=== PATIENT | female | born 1955 ===

== ENCOUNTER 2017-06-02 10:01 | Emergency (ER) | payer OTHER ==
[2017-06-02 10:01] VITALS: BMI 31.3
[2017-06-02 10:13] VITALS: TEMP 97.8
[2017-06-02] MEDS ORDERED: Morphine 4 MG/ML VIAL IV STA (11:46)
--- NOTE | 2017-06-02 12:17 | RAD ---
HISTORY: pain COMPARISON: Chest x-ray performed 12/16/15 TECHNIQUE: Chest, one view. FINDINGS: LUNGS: No focal consolidation. 8 mm nodular density at the right lung base appears peripherally calcified. PLEURA: No significant pleural effusion identified. No definite pneumothorax . CARDIOVASCULAR: Heart size appears within normal limits. Ectatic aorta. OSSEOUS STRUCTURES: No acute osseous abnormality identified. VISUALIZED UPPER ABDOMEN: Unremarkable. OTHER FINDINGS: None. IMPRESSION: No focal consolidation, significant pleural effusion, or definite pneumothorax identified. 8 mm nodule at the right lung base appears peripherally calcified.
--- NOTE | 2017-06-02 12:17 | RAD ---
PROCEDURE: Left femur HISTORY: Pain. No history of recent/ related trauma provided COMPARISON: None TECHNIQUE: Standard protocol for this study/examination. FINDINGS: No significant/acute osseous, articular or soft tissue abnormalities. Incompletely visualized and therefore characterize degenerative changes left knee. IMPRESSION: No acute findings related to/accounting for the clinical presentation. Please note: No preliminary report/ innterpretation of this examination provided by emergency department personnel.
[2017-06-02 13:01] LABS: BASO # 0.1 K/uL (0.0-0.2); BASO % 0.8 % (0.0-2.0); EOS # 0.4 K/uL (0.0-0.7); EOS % 3.8 % (0.0-4.0); LYMPH # 3.2 K/uL (1.0-4.3); LYMPH % 29.5 % (20.0-40.0); MEAN CELL VOLUME 86.9 fL (81.0-99.0); MEAN CORPUSCULAR HEMOGLOBIN 29.3 pg (27.0-31.0); MEAN CORPUSCULAR HGB CONC 33.7 g/dL (33.0-37.0); MEAN PLATELET VOLUME 10.4 fL (7.2-11.7); MONO # 0.7 K/uL (0.0-0.8); MONO % 6.4 % (0.0-10.0); NRBC % 0.1 % (0.0-2.0); RED CELL DISTRIBUTION WIDTH 14.1 % (11.5-14.5); WHITE BLOOD COUNT 10.9 K/uL (4.8-10.8)
[2017-06-02 13:10] LABS: CHLORIDE 102 mmol/L (98-107); SODIUM 143 mmol/L (132-148)
[2017-06-02 13:12] LABS: GFR AFRICAN-AMERICAN > 60
[2017-06-02 13:13] LABS: ALB/GLOB RATIO 1.2 (1.0-2.1); ALKALINE PHOSPHATASE 104 U/L (38-126); ALT/SGPT 29 U/L (9-52); AST/SGOT 27 U/L (14-36); BILIRUBIN,TOTAL 0.7 mg/dL (0.2-1.3); BLOOD UREA NITROGEN 11 mg/dL (7-17); CALCIUM 9.4 mg/dl (8.6-10.4); CARBON DIOXIDE 23 mmol/L (22-30); GLUCOSE,RANDOM 81 mg/dL (65-105); TOTAL PROTEIN 7.6 g/dL (6.3-8.3)
[2017-06-02 13:14] LABS: MAGNESIUM 1.9 mg/dL (1.6-2.3)
--- NOTE | 2017-06-02 13:18 | CT ---
PROCEDURE: CT HEAD WITHOUT CONTRAST. HISTORY: left sided pain COMPARISON: Noncontrast head CT performed 01/18/13 TECHNIQUE: Axial computed tomography images were obtained through the head/brain without intravenous contrast. Radiation dose: Total exam DLP = 957.18 mGy-cm. This CT exam was performed using one or more of the following dose reduction techniques: Automated exposure control, adjustment of the mA and/or kV according to patient size, and/or use of iterative reconstruction technique. FINDINGS: HEMORRHAGE: No intracranial hemorrhage. BRAIN: Diffuse atrophy with prominence of the ventricles and sulci noted. No mass effect or edema. Scattered periventricular and subcortical white matter hypodensities, which are nonspecific, but often seen with chronic microvascular ischemic disease. Please note that MRI with diffusion imaging is more sensitive in the detection of acute ischemic event. VENTRICLES: No hydrocephalus. CALVARIUM: Unremarkable. PARANASAL SINUSES: Mucosal thickening of the left maxillary sinus and bilateral ethmoid air cells. MASTOID AIR CELLS: Unremarkable as visualized. No inflammatory changes. OTHER FINDINGS: None. IMPRESSION: Generalized atrophy. Mild nonspecific white matter changes. Mucosal thickening of the left maxillary sinus and bilateral ethmoid air cells. Correlate for history of sinusitis.
[2017-06-02] MEDS ORDERED: Morphine 4 MG/ML VIAL ONE (13:26)
--- NOTE | 2017-06-02 13:26 | VASCLAB ---
PROCEDURE: Left Lower Extremity Venous Duplex Exam. HISTORY: pain PRIORS: None. TECHNIQUE: Left common femoral, femoral, popliteal and posterior tibial, peroneal and great saphenous veins were evaluated. Flow was assessed with color Doppler, compressibility, assessment of phasic flow and augmentation response. Report prepared by ALBERT Green, RVT FINDINGS: LEFT: 1. Common Femoral Vein: 1.1. Compressibility - Fully compressible: Thrombus - None : Flow - Phasic: Augmentation -Normal: Reflux - None. 2. Femoral Vein: 2.1. Compressibility - Fully compressible: Thrombus - None: Flow - Phasic: Augmentation -Normal: Reflux - None. 3. Popliteal Vein: 3.1. Compressibility - Fully compressible: Thrombus - None: Flow - Phasic: Augmentation -Normal: Reflux - None. 4. Posterior Tibial Vein: 4.1. Compressibility - Fully compressible: Thrombus - None: Flow - Phasic: Augmentation -Normal: Reflux - None. 5. Peroneal Vein: 5.1. Compressibility - Fully compressible: Thrombus - None: Flow - Phasic: Augmentation -Normal: Reflux - None. 6. Great Saphenous Vein: 6.1. Compressibility - Fully compressible: Thrombus - None: Flow - Phasic: Augmentation - Normal: Reflux - None. OTHER FINDINGS: IMPRESSION: No evidence of deep or superficial vein thrombosis of the left lower extremity with excellent venous flow. Normal valve function noted of the left side. Normal venous flow noted in the right common femoral vein.
[2017-06-02 13:48] LABS: RBC URINE < 1 /hpf (0-3); URINE BILIRUBIN NEGATIVE (NEGATIVE); URINE BLOOD NEGATIVE (NEGATIVE); URINE COLOR Yellow (YELLOW); URINE GLUCOSE (UA) NORMAL (Normal); URINE KETONE TRACE mg/dL (NEGATIVE); URINE LEUKOCYTE ESTERASE NEG Leu/uL (Negative); URINE PROTEIN NEGATIVE (NEGATIVE); URINE UROBILINOGEN NORMAL mg/dL (0.2-1.0); WBC URINE 1 /hpf (0-5)
[2017-06-02 15:45] VITALS: BP 122/80; PULSE 50; RESP 16; O2SAT 97
--- NOTE | 2017-06-02 15:48 | RAD ---
PROCEDURE: Radiographs of the Lumbar Spine. HISTORY: left leg pain, atraumatic COMPARISON: None available. FINDINGS: BONES: Osseous demineralization limits evaluation for acute fracture lines. Alignment appears satisfactory. No listhesis. No acute displaced fracture identified. Degenerative changes including small anterior osteophyte formation. Facet hypertrophy. DISC SPACES: Unremarkable. OTHER FINDINGS: Mild constipation. IMPRESSION: Osseous demineralization. Degenerative changes. Mild constipation.
--- NOTE | 2017-06-02 16:11 | C.PDOC ---
History Of Present Illness 61 year old female presents to the ED for evaluation of non-reproducible left thigh pain which began yesterday at around 2100. Patient describes the pain as "deep" and states she feels like it is "shooting" up and down her extremity. Patient also notes pain to the entire left side of her body, including her left facial region. Patient denies fever, chills, headache, chest pain, recent trauma /injury to the extremity. Time Seen by Provider: 06/02/17 11:16 Chief Complaint (Nursing): Lower Extremity Problem/Injury History Per: Patient History/Exam Limitations: no limitations Onset/Duration Of Symptoms: Hrs Current Symptoms Are (Timing): Still Present Additional History Per: Patient - Hip Description Of Injury: denies: Fell, Tripped - Knee Description Of Injury: denies: Fell, Struck With Object - Ankle/Foot Description Of Injury: denies: Fell, Struck With Object Past Medical History Reviewed: Historical Data, Nursing Documentation, Vital Signs Vital Signs: Last Vital Signs Temp 97.8 F 06/02/17 10:10 Pulse 50 L 06/02/17 15:44 Resp 16 06/02/17 15:44 BP 122/80 06/02/17 15:44 Pulse Ox 97 06/02/17 16:20 - Medical History PMH: No Chronic Diseases Surgical History: Appendectomy Family History: States: Unknown Family Hx - Social History Hx Tobacco Use: No Hx Alcohol Use: No Hx Substance Use: No - Immunization History Hx Tetanus Toxoid Vaccination: No Hx Influenza Vaccination: No Hx Pneumococcal Vaccination: No Review Of Systems Constitutional: Negative for: Fever, Chills Musculoskeletal: Positive for: Other (left thigh pain. left-sided body pain including left facial region) Physical Exam - Physical Exam Appears: Non-toxic, No Acute Distress Skin: Normal Color, Warm, Dry Head: Atraumatic, Normacephalic Eye(s): bilateral: Normal Inspection Oral Mucosa: Moist Neck: Supple Chest: Symmetrical, No Deformity Cardiovascular: Rhythm Regular, No Murmur Respiratory: Normal Breath Sounds, No Rales, No Rhonchi, No Wheezing Back: Normal Inspection, No Vertebral Tenderness, No Paraspinal Tenderness Extremity: Normal ROM, No Tenderness, No Calf Tenderness, Capillary Refill ( less than 2 seconds ), No Deformity, No Swelling Neurological/Psych: Normal Speech, Normal Cognition, Normal Motor, Normal Sensation Gait: Steady ED Course And Treatment - Laboratory Results Result Diagrams: 06/02/17 12:51 06/02/17 12:51 O2 Sat by Pulse Oximetry: 97 (on RA) Pulse Ox Interpretation: Normal - Other Rad lumbar spine XR X-Ray: Interpreted by Me, Viewed By Me, Read By Radiologist Interpretation: PROCEDURE: Radiographs of the Lumbar Spine. HISTORY: left leg pain, atraumatic. COMPARISON: None available. FINDINGS: BONES: Osseous demineralization limits evaluation for acute fracture lines. Alignment appears satisfactory. No listhesis. No acute displaced fracture identified. Degenerative changes including small anterior osteophyte formation. Facet hypertrophy. DISC SPACES: Unremarkable. OTHER FINDINGS: Mild constipation. IMPRESSION: Osseous demineralization. Degenerative changes. Mild constipation femur XR X-Ray: Interpreted by Me, Viewed By Me, Read By Radiologist Interpretation: PROCEDURE: Left femur. HISTORY: Pain. No history of recent/ related trauma provided. COMPARISON: None. TECHNIQUE: Standard protocol for this study/examination. FINDINGS: No significant/acute osseous, articular or soft tissue abnormalities. Incompletely visualized and therefore characterize degenerative changes left knee. IMPRESSION: No acute findings related to/ accounting for the clinical presentation. . Please note: No preliminary report/ innterpretation of this examination provided by emergency department personnel. CXR X-Ray: Interpreted by Me, Viewed By Me, Read By Radiologist Interpretation: HISTORY: pain. COMPARISON: Chest x-ray performed 12/16/15. TECHNIQUE: Chest, one view. FINDINGS: LUNGS: No focal consolidation. 8 mm nodular density at the right lung base appears peripherally calcified. PLEURA: No significant pleural effusion identified. No definite pneumothorax . CARDIOVASCULAR: Heart size appears within normal limits. Ectatic aorta. OSSEOUS STRUCTURES: No acute osseous abnormality identified. VISUALIZED UPPER ABDOMEN: Unremarkable. OTHER FINDINGS: None. IMPRESSION: No focal consolidation, significant pleural effusion, or definite pneumothorax identified. 8 mm nodule at the right lung base appears peripherally calcified. - CT Scan/US CT head Other Rad Studies (CT/US): Interpreted By Me, Read By Radiologist, Radiology Report Reviewed CT/US Interpretation: PROCEDURE: CT HEAD WITHOUT CONTRAST. HISTORY: left sided pain. COMPARISON: Noncontrast head CT performed 01/18/13. TECHNIQUE: Axial computed tomography images were obtained through the head/brain without intravenous contrast. Radiation dose: Total exam DLP = 957.18 mGy-cm. This CT exam was performed using one or more of the following dose reduction techniques: Automated exposure control, adjustment of the mA and/or kV according to patient size, and/or use of iterative reconstruction technique. FINDINGS: HEMORRHAGE: No intracranial hemorrhage. BRAIN: Diffuse atrophy with prominence of the ventricles and sulci noted. No mass effect or edema. Scattered periventricular and subcortical white matter hypodensities, which are nonspecific, but often seen with chronic microvascular ischemic disease. Please note that MRI with diffusion imaging is more sensitive in the detection of acute ischemic event. VENTRICLES: No hydrocephalus. CALVARIUM: Unremarkable. PARANASAL SINUSES: Mucosal thickening of the left maxillary sinus and bilateral ethmoid air cells. MASTOID AIR CELLS: Unremarkable as visualized. No inflammatory changes. OTHER FINDINGS: None. IMPRESSION: Generalized atrophy. Mild nonspecific white matter changes. Mucosal thickening of the left maxillary sinus and bilateral ethmoid air cells. Correlate for history of sinusitis. Progress Note: CT Head, Left femur XR, LS Spine XR, CXR, EKG and labs ordered and reviewed. Morphine IV administered. On re-evaluation patient feels better and is sable to be d/c home with PMD follow up. Copies of all reports were given to the patient. Disposition - Disposition Disposition: HOME/ ROUTINE Disposition Time: 16:10 Condition: STABLE Additional Instructions: Follow up with your PMD within 1-2 days. Return to ED if feel worse. Prescriptions: traMADol [Ultram] 50 mg PO Q6 #20 tab Instructions: Leg Pain (ED) Forms: [employer] ([place]) - Clinical Impression Clinical Impression: Leg pain - PA / INVESTIGATIVE RESEARCH SPECIALIST / Resident Statement MD/DO has reviewed & agrees with the documentation as recorded. - Scribe Statement The provider has reviewed the documentation as recorded by the Scribe (Livia Abreu) All medical record entries made by the Scribe were at my direction and personally dictated by me. I have reviewed the chart and agree that the record accurately reflects my personal performance of the history, physical exam, medical decision making, and the department course for this patient. I have also personally directed, reviewed, and agree with the discharge instructions and disposition.
--- NOTE | 2017-06-02 16:11 | C.PDOC ---
Time Seen by Provider: 06/02/17 11:16 Chief Complaint (Nursing): Lower Extremity Problem/Injury Past Medical History Vital Signs: Last Vital Signs Temp 97.8 F 06/02/17 10:10 Pulse 50 L 06/02/17 15:44 Resp 16 06/02/17 15:44 BP 122/80 06/02/17 15:44 Pulse Ox 97 06/02/17 15:44 Surgical History: Appendectomy Family History: States: Unknown Family Hx - Social History Hx Tobacco Use: No Hx Alcohol Use: No Hx Substance Use: No - Immunization History Hx Tetanus Toxoid Vaccination: No Hx Influenza Vaccination: No Hx Pneumococcal Vaccination: No ED Course And Treatment - Laboratory Results Result Diagrams: 06/02/17 12:51 06/02/17 12:51 O2 Sat by Pulse Oximetry: 97 Disposition - Disposition Disposition: HOME/ ROUTINE Disposition Time: 16:10 Condition: STABLE Additional Instructions: Follow up with your PMD within 1-2 days. Return to ED if feel worse. Prescriptions: traMADol [Ultram] 50 mg PO Q6 #20 tab Instructions: Leg Pain (ED) Forms: [facility] ([place]) - Clinical Impression Clinical Impression: Leg pain
--- NOTE | 2017-06-07 13:07 | CARD ---
APPROVED REPORT EKG Measurement Heart [id number] <Conclusion> Sinus bradycardia Nonspecific T wave abnormality Abnormal ECG
== END 2017-06-02 16:22 | disposition home or self-care (01) ==
LOC: C.ER 10:01
DX: M79.652 Pain in left thigh (principal)
CPT/HCPCS: 70450; 71010; 72100; 73552; 80053; 81001; 82550; 82553; 83605; 83735; 84484; 85025; 85610; 85730; 93005; 93971; 96374; 99284; J2270